=== PATIENT | male | born 1965 | race Hispanic/Latino ===

== ENCOUNTER 2022-05-18 23:43 | Emergency (ER) | payer SELFPAY ==
[2022-05-19] MEDS ORDERED: traMADol HCl 50 MG TAB ONE ×2 (00:50→00:55)
[2022-05-19] MEDS ORDERED: Cyclobenzaprine 10 MG TAB ONE ×2 (00:50→00:55)
[2022-05-19] MEDS ORDERED: Ketorolac Tromethamine 60 MG/2 ML VIAL ONE (00:51)
== END 2022-05-19 01:05 | disposition home or self-care (01) ==
LOC: BURERS 23:43
DX: S13.9XXA Sprain of joints and ligaments of unspecified parts of neck, initial encounter (principal); M43.6 Torticollis; F17.210 Nicotine dependence, cigarettes, uncomplicated
CPT/HCPCS: 96372; 99283; J1885